=== PATIENT | male | born 1955 | race Hispanic/Latino ===

== ENCOUNTER 2019-02-24 09:05 | Day surgery (SDC) | payer OTHER ==
[~2019-02-24] VITALS: Ht 177.8 cm; Wt 124.7 kg
[2019-02-24] VITALS (8 sets, daily range): BP systolic 99–139; BP diastolic 39–68
[~2019-02-24 09:05] MED LIST: AZAT50 PO; PYRI60TA2 PO; SODIUM CHLORIDE 0.9% 1000ML 1,000 ML IV ONE; TAMS-1 PO
[2019-02-24] MEDS ORDERED: ESCI10TA PO (10:39)
[2019-02-24] MEDS ORDERED: PROPOFOL 10 MG/ML 20ML VIAL IV ONE (11:16)
== END 2019-02-24 12:22 | disposition home or self-care (01) ==
LOC: ENDO 09:05
PROVIDERS: ATTEND Internal Medicine Gastroenterology
DX: Z12.11 Encounter for screening for malignant neoplasm of colon (principal); K62.1 Rectal polyp; K63.5 Polyp of colon; K64.0 First degree hemorrhoids; Z86.010 Personal history of colon polyps; I10 Essential (primary) hypertension; F41.9 Anxiety disorder, unspecified; F32.9 Major depressive disorder, single episode, unspecified; Z88.0 Allergy status to penicillin; Z88.1 Allergy status to other antibiotic agents; Z79.899 Other long term (current) drug therapy; K57.30 Diverticulosis of large intestine without perforation or abscess without bleeding
CPT/HCPCS: 45380; 88305; A4606; J2704; J7030

== ENCOUNTER 2022-10-28 17:55 | Observation (INO) | payer OTHER ==
[~2022-10-28] VITALS: Ht 175.3 cm; Wt 115.7 kg
[~2022-10-28 17:55] MED LIST changes: +ESCI10TA PO; -SODIUM CHLORIDE 0.9% 1000ML 1,000 ML IV ONE
[2022-10-28 18:17] LABS: APPEARANCE,URINE CLEAR (CLEAR); BILIRUBIN,URINE NEGATIVE (NEGATIVE); COLOR,URINE LIGHT-YELLOW (YELLOW); GLUCOSE, URINE (UA) NEGATIVE (NEGATIVE); KETONES,URINE NEGATIVE (NEGATIVE); LEUKOCYTE ESTERASE ,URINE NEGATIVE Leu/uL (NEGATIVE); NITRATE,URINE NEGATIVE (NEGATIVE); OCCULT BLOOD,URINE SMALL (NEGATIVE); PROTEIN,URINE NEGATIVE (NEGATIVE); UROBILINOGEN,URINE 0.2 mg/dL (0.2-1.0)
[2022-10-28 18:21] LABS: BASOPHILS % (AUTO) 0.1 % (0.0-5.0); EOSINOPHILS % (AUTO) 0.8 % (0.0-8.0); HEMATOCRIT 42.5 % (42-54); LYMPHOCYTES % (AUTO) 9.4 % (21.0-51.0); MEAN CORPUSCULAR HEMOGLOBIN 30.6 pg (27.0-33.0); MEAN CORPUSCULAR HGB CONC 33.4 g/dL (32.0-36.0); MEAN CORPUSCULAR VOLUME 91.6 fL (79-99); MONOCYTES % (AUTO) 8.1 % (3.0-13.0); NEUTROPHILS % (AUTO) 81.3 % (40.0-77.0); PLATELET COUNT (AUTO) 224 K/uL (130-400); RED BLOOD CELL COUNT(AUTO) 4.64 MIL/uL (4.50-6.20)
[2022-10-28 18:23] LABS: BACTERIA,URINE RARE /HPF (None Seen); RBC,URINE 0-1 /HPF (0-1); WBC,URINE 0-1 /HPF (0-1)
[2022-10-28 18:29] LABS: CREATININE 0.9 mg/dL (0.5-1.5); POTASSIUM 3.7 mmol/L (3.5-5.1)
[2022-10-28 18:38] LABS: ALBUMIN 3.4 g/dL (3.5-5.0); TOTAL PROTEIN, SERUM 7.3 g/dL (6.0-8.3)
[2022-10-28] MEDS ORDERED: METOPROLOL TARTRATE 25 MG TAB PO STA (22:09)
[2022-10-28] MEDS ORDERED: METOPROLOL TARTRATE 25 MG TAB ONE (22:15)
[2022-10-28] MEDS ORDERED: AMLO-257 PO (22:31)
[2022-10-28] MEDS ORDERED: ROSU20TA31 PO (22:31)
[2022-10-28] MEDS ORDERED: AZAT100T2 PO ×2 (22:31)
[2022-10-28] MEDS ORDERED: TOPI25TA48 PO (22:31)
[2022-10-28] MEDS ORDERED: PYRI60TA PO (22:31)
[2022-10-28] MEDS ORDERED: ASPIRIN 81MG CHEW TAB ONE (22:55)
[2022-10-28] MEDS ORDERED: ACETAMINOPHEN 325 MG TAB PO PRN ×2 (23:00)
[2022-10-28] MEDS ORDERED: MORPHINE 2 MG SYG IV PRN (23:00)
[2022-10-28] MEDS ORDERED: ONDANSETRON 4MG INJ IV PRN (23:00)
[2022-10-28] MEDS ORDERED: MORPHINE 4 MG SYG IV PRN (23:00)
[2022-10-28] MEDS ORDERED: ASPIRIN 81MG CHEW TAB PO ONE (23:00)
[2022-10-29 00:15] VITALS: BP 120/62
[2022-10-29] MEDS ORDERED: NITROGLYCERIN 0.4 MG SL TAB SL PRN (01:30)
[2022-10-29 04:00] LABS: BASOPHILS % (AUTO) 0.1 % (0.0-5.0); EOSINOPHILS % (AUTO) 0.9 % (0.0-8.0); HEMATOCRIT 40.9 % (42-54); LYMPHOCYTES % (AUTO) 15.8 % (21.0-51.0); MEAN CORPUSCULAR HEMOGLOBIN 31.3 pg (27.0-33.0); MEAN CORPUSCULAR HGB CONC 34.2 g/dL (32.0-36.0); MEAN CORPUSCULAR VOLUME 91.5 fL (79-99); MONOCYTES % (AUTO) 8.7 % (3.0-13.0); NEUTROPHILS % (AUTO) 72.9 % (40.0-77.0); PLATELET COUNT (AUTO) 225 K/uL (130-400); RED BLOOD CELL COUNT(AUTO) 4.47 MIL/uL (4.50-6.20); RED CELL DISTRIBUTION WIDTH 13.9 % (11.0-15.5)
[2022-10-29 04:04] LABS: INR 1.01 (0.85-1.15)
[2022-10-29 04:06] LABS: PARTIAL THROMBOPLASTIN TIME 32.8 SEC (26.3-35.5)
[2022-10-29 04:10] LABS: CREATININE 0.8 mg/dL (0.5-1.5); MAGNESIUM 1.9 mg/dL (1.80-2.40); POTASSIUM 3.8 mmol/L (3.5-5.1)
[2022-10-29 04:35] VITALS: BP 116/61
[2022-10-29 08:21] LABS: HEMOGLOBIN A1C 5.8 % (4.0-6.0)
[2022-10-29 08:34] LABS: THYROID STIMULATING HORMONE 1.04 uIU/mL (0.36-3.74)
[2022-10-29 08:50] VITALS: BP 136/66
[2022-10-29] MEDS ORDERED: CITALOPRAM 20 MG TABLET PO SCH (09:00)
[2022-10-29] MEDS ORDERED: FAMOTIDINE 20MG VIAL IV SCH (09:00)
[2022-10-29] MEDS ORDERED: PYRIDOSTIGMINE BROMIDE 60 MG TABLET PO SCH ×2 (09:00→21:00)
[2022-10-29] MEDS ORDERED: AZATHIOPRINE 50 MG TAB PO SCH ×2 (09:00→21:00)
[2022-10-29] MEDS ORDERED: TAMSULOSIN HCL 0.4 MG CAP.ER.24H PO SCH (09:00)
[2022-10-29] MEDS ORDERED: RIVAROXABAN 15 MG TABLET PO SCH (09:00)
[2022-10-29] MEDS ORDERED: ENOXAPARIN SODIUM 40 MG/0.4 ML SYRINGE SQ SCH (09:00)
[2022-10-29] MEDS ORDERED: ASPIRIN 81MG CHEW TAB PO SCH (09:00)
[2022-10-29] MEDS ORDERED: AMLODIPINE 5 MG TAB PO SCH (09:00)
[2022-10-29] MEDS ORDERED: RIVA15TA PO (11:13)
[2022-10-29] MEDS ORDERED: METO25TA6 PO (11:35)
[2022-10-29 12:10] VITALS: BP 115/77
[2022-10-29] MEDS ORDERED: ATORVASTATIN 40 MG TABLET PO SCH (21:00)
[2022-10-29] MEDS ORDERED: TOPIRAMATE 25 MG TABLET PO SCH (21:00)
== END 2022-10-29 12:21 | disposition home or self-care (01) ==
LOC: EDH 17:55 → EDHIP 22:37 → INTOOBSV 22:37 → 2AH 23:49
PROVIDERS: ADMIT Internal Medicine; ATTEND Internal Medicine
DX: I48.91 Unspecified atrial fibrillation (principal); I20.0 Unstable angina; I10 Essential (primary) hypertension; E11.9 Type 2 diabetes mellitus without complications; G70.00 Myasthenia gravis without (acute) exacerbation; F41.9 Anxiety disorder, unspecified; E78.5 Hyperlipidemia, unspecified; G47.33 Obstructive sleep apnea (adult) (pediatric); I49.3 Ventricular premature depolarization; Q33.3 Agenesis of lung; E66.9 Obesity, unspecified; Z87.891 Personal history of nicotine dependence; Z51.5 Encounter for palliative care; Z79.82 Long term (current) use of aspirin; Z79.899 Other long term (current) drug therapy; Z68.37 Body mass index [BMI] 37.0-37.9, adult
CPT/HCPCS: 99285; 71045; 84484 ×4; 80053; 83880; 85025 ×2; 81001; 36415 ×2; 93005 ×2; 93306; 96374; 80061; 83036; 84443; 83735; 84100; 80048; 85610; 85730; 93356; G0378; J3490; J7500

== ENCOUNTER → 2024-01-22 | Outpatient (CLI) | payer OTHER ==
[~2024-01-22] MED LIST changes: +AMLO-257 PO; +AZAT100T2 PO; -AZAT50 PO; +METO25TA6 PO; +PYRI60TA PO; +RIVA15TA PO; +ROSU20TA73 PO; +TOPI25TA48 PO
[2024-01-22 16:19] LABS: BASOPHILS # (AUTO) 0.02 K/uL (0.00-0.20); BASOPHILS % (AUTO) 0.3 % (0.0-5.0); EOSINOPHILS # (AUTO) 0.12 K/uL (0.00-0.70); EOSINOPHILS % (AUTO) 2.1 % (0.0-8.0); HEMATOCRIT 46.9 % (42-54); IMMATURE GRANULOCYTE ABSOLUTE 0.02 K/uL (0-1); LYMPHOCYTES # (AUTO) 1.3 K/uL (1.0-4.8); LYMPHOCYTES % (AUTO) 22.9 % (21.0-51.0); MEAN CORPUSCULAR HEMOGLOBIN 30.1 pg (27.0-33.0); MEAN CORPUSCULAR HGB CONC 32.6 g/dL (32.0-36.0); MEAN CORPUSCULAR VOLUME 92.1 fL (79-99); MONOCYTES # (AUTO) 0.4 K/uL (0.1-1.0); MONOCYTES % (AUTO) 7.7 % (3.0-13.0); NEUTROPHILS # (AUTO) 3.8 K/uL (1.8-7.7); NEUTROPHILS % (AUTO) 66.7 % (40.0-77.0); PLATELET COUNT (AUTO) 205 K/uL (130-400); RED BLOOD CELL COUNT(AUTO) 5.09 MIL/uL (4.50-6.20); RED CELL DISTRIBUTION WIDTH 14.7 % (11.0-15.5); WHITE BLOOD COUNT (AUTO) 5.7 K/uL (4.8-10.8)
[2024-01-22 16:39] LABS: CREATININE 0.8 mg/dL (0.5-1.3); POTASSIUM 4.5 mmol/L (3.5-5.1)
[2024-01-22 16:44] LABS: HEMOGLOBIN A1C 6.2 % (4.0-6.0)
== END | disposition home or self-care (01) ==
LOC: LAB 12:52
PROVIDERS: ATTEND Internal Medicine
DX: I10 Essential (primary) hypertension (principal); I48.0 Paroxysmal atrial fibrillation; Z79.01 Long term (current) use of anticoagulants; Z79.899 Other long term (current) drug therapy
CPT/HCPCS: 36415; 80048; 83036; 85025